=== PATIENT | female | born 1960 | race Two or more races ===

== ENCOUNTER → 2016-07-18 | Outpatient (CLI) | payer OTHER, MEDICARE, MEDICAID | LOC: WI 08:35 | PROVIDERS: ATTEND Family Medicine | DX: Z12.31 Encounter for screening mammogram for malignant neoplasm of breast (principal) | CPT/HCPCS: 77067; G0202 ==

== ENCOUNTER 2016-09-21 13:01 | Emergency (ER) | payer OTHER, MEDICARE, MEDICAID ==
[2016-09-21 13:07] VITALS: BP 133/86
--- NOTE | 2016-09-21 15:36 | ER Document Report ---
HPI - HPI Patient complains to provider of: right ankle pain Pain Level: 4 Context: 56 yo female with hx/o gout c/o pain to medial right ankle x 3 days. typical location and quality of gout pain pt reports last attack was about 1 yr ago. had good results with prednisone. does not tolerate NSAIDS and colcrys -> GI upset Associated Symptoms: None Exacerbated by: Movement, Walking Relieved by: Denies Similar symptoms previously: Yes Recently seen / treated by doctor: No - ROS Systems Reviewed and Negative: Yes All other systems reviewed and negative - REPRODUCTIVE LMP: menopause Reproductive: DENIES: : - DERM Skin Color: Normal Past Medical History - General Information source: Patient - Social History Smoking Status: Never Smoker Frequency of alcohol use: None Drug Abuse: None Occupation: retail Lives with: Family Family History: None Patient has suicidal ideation: No Patient has homicidal ideation: No - Past Medical History Cardiac Medical History: Reports: Hx Hypercholesterolemia, Hx Hypertension Renal/ Medical History: Denies: Hx Peritoneal Dialysis Musculoskeltal Medical History: Reports Hx Arthritis, Reports Hx Gout Past Surgical History: Reports: Hx Orthopedic Surgery - finger - Immunizations Immunizations up to date: Yes Hx Diphtheria, Pertussis, Tetanus Vaccination: Yes Vertical Provider Document - CONSTITUTIONAL Agree With Documented VS: Yes Exam Limitations: No Limitations General Appearance: WD/WN, No Apparent Distress - INFECTION CONTROL TRAVEL OUTSIDE OF THE [place] IN LAST 30 DAYS: No - HEENT HEENT: Atraumatic, PERRLA - NECK Neck: Normal Inspection, Supple - RESPIRATORY Respiratory: Breath Sounds Normal, No Respiratory Distress O2 Sat by Pulse Oximetry: 95 - CARDIOVASCULAR Cardiovascular: Regular Rate, Regular Rhythm - MUSCULOSKELETAL/EXTREMETIES Musculoskeletal/Extremeties: Tender - focal right medial malleolus tenderness. mild edema, erythema and warmth. distal SMC itnact - NEURO Level of Consciousness: Awake, Alert, Appropriate Motor/Sensory: No Motor Deficit - DERM Integumentary: Warm, Dry, No Rash Course - Vital Signs Vital signs: Temp Pulse Resp BP Pulse Ox 98.5 F 76 17 133/86 H 95 09/21/16 13:05 09/21/16 13:05 09/21/16 13:05 09/21/16 13:05 09/21/16 13:05 Discharge - Discharge Condition: Stable Disposition: HOME, SELF-CARE Instructions: Gout ([facility]), Gout Diet ([facility]), Steroid Medication, Oral Narcotic Medication ([facility]) Prescriptions: Oxycodone HCl/Acetaminophen [Percocet 5-325 mg Tablet] 1 tab PO Q4H PRN #15 tablet PRN Reason: Prednisone [Deltasone 10 mg Tablet] 10 mg PO ASDIR PRN #21 tablet PRN Reason: Forms: Return to Work
== END 2016-09-21 16:04 | disposition home or self-care (01) ==
LOC: ER 13:01
DX: M10.9 Gout, unspecified (principal); M25.571 Pain in right ankle and joints of right foot; E78.00 Pure hypercholesterolemia, unspecified; I10 Essential (primary) hypertension
CPT/HCPCS: 99283

== ENCOUNTER → 2017-10-13 | Outpatient (CLI) | payer MEDICARE, MEDICAID ==
--- NOTE | 2017-10-13 15:07 | WOMENS IMAGING REPORT ---
EXAM DESCRIPTION: 3D SCREENING MAMMO BILAT COMPLETED DATE/TIME: 10/13/2017 2:00 pm REASON FOR STUDY: BILATERAL SCREENING MAMMO 3D /Z12.31 Z12.31 ENCNTR SCREEN MAMMOGRAM FOR MALIGNANT NEOPLASM OF GIN COMPARISON: 2011 to 2016 TECHNIQUE: Standard craniocaudal and mediolateral oblique views of each breast recorded using digita l acquisition and breast tomosynthesis. LIMITATIONS: None. FINDINGS: No masses, calcifications or architectural distortion. No areas of suspicion. Read with the assistance of CAD. .[facility] - R2 Cenova Version 1.3 .[facility] - R2 Cenova Version 1.3 .[facility] - R2 Cenova Version 2.4 .[facility] [place] - R2 Cenova Version 2.4 .[facility] - R2 Beef Grinder Version 9.2 IMPRESSION: NORMAL MAMMOGRAM. BIRADS 1. BREAST DENSITY: b. There are scattered areas of fibroglandular density. BIRAD: 1 NEGATIVE RECOMMENDATION: ROUTINE SCREENING COMMENT: The patient has been notified of the results by letter per SA requirements. Additional no tification policies are in place for contacting patient with suspicious or incomplete findings. Quality ID #[id number]: The [employer] recommends an annual screening mammogram for women aged 40 years or over. This facility utilizes a reminder system to ensure that all patients receive reminder letters, and/or direct phone calls for appointments. This includes reminders for routine scr eening mammograms, diagnostic mammograms, or other Breast Imaging Interventions when appropriate. Th is patient will be placed in the appropriate reminder system. The [employer] (ACR) has developed recommendations for screening MRI of the breast s in certain patient populations, to be used in conjunction with mammography. Breast MRI surveillanc e may be appropriate for women with more than 20% lifetime risk of developing breast cancer as deter mined by genetic testing, significant family history of the disease, or history of mantle radiation f or Hodgkins Disease. ACR Practice Guidelines 2008. DBT Technology DBT is a type of tomographic mammography. With conventional mammography, overlapping breast tissue ma y make lesions difficult to detect, even with good compression. DBT uses an x-ray tube that rotates a round the breast, taking images at different angles. These images are then combined to create thin sl ices of the breast that the radiologist can view as a 3D reconstruction. The [employer] unit can perform full-field digital mammograms (2D imaging); or DBT (3D imaging); or both, in a combination mode that quickly performs both the mammogram and the tomosynthesis scan while the breast is still compressed. PQRS 6045F: Fluoroscopic imaging is not utilized for breast tomosynthesis. TECHNICAL DOCUMENTATION: FINDING NUMBER: (1) ASSESSMENT: (1) JOB ID: [id number] [employer]- All Rights Reserved Reading location - IP/workstation name: [facility]
== END ==
LOC: WI 13:14
PROVIDERS: ATTEND Family Medicine
DX: Z12.31 Encounter for screening mammogram for malignant neoplasm of breast (principal)
CPT/HCPCS: 77063; 77067

== ENCOUNTER 2018-08-18 19:16 | Emergency (ER) | payer MEDICARE, MEDICAID ==
[2018-08-18] MEDS ORDERED: PREDNISONE 20 MG TABLET PO ONE (20:51)
[2018-08-18] MEDS ORDERED: HYDROCODONE/ACETAMINOPHEN 5-325 MG (6 TAB/ER DISP) PO PRN (20:51)
--- NOTE | 2018-08-18 21:00 | ER Document Report ---
HPI - HPI Patient complains to provider of: gout flare Time Seen by Provider: 08/18/18 20:38 Pain Level: 4 Context: Very pleasant 58-year-old female with history of gout presents with a typical gout attack in her left foot and ankle consistent with previous attacks. She states that she has had a couple of minor attacks over the last couple years that is been easily treated with Advil. She states the last major attack like that she had was approximately 2 to 3 years ago and did require a steroid treatment. She denies fevers or chills, is able to move her left lower extremity. Denies any proximal joint pain to the knees or hips. No other complaints. - REPRODUCTIVE Reproductive: DENIES: : Past Medical History - Social History Smoking Status: Never Smoker Family History: None - Past Medical History Cardiac Medical History: Reports: Hx Hypercholesterolemia, Hx Hypertension Renal/ Medical History: Denies: Hx Peritoneal Dialysis Musculoskeletal Medical History: Reports Hx Arthritis, Reports Hx Gout Past Surgical History: Reports: Hx Orthopedic Surgery - finger - Immunizations Immunizations up to date: Yes Hx Diphtheria, Pertussis, Tetanus Vaccination: Yes Vertical Provider Document - CONSTITUTIONAL Notes: PHYSICAL EXAMINATION: Reviewed vital signs and charting by RN GENERAL: Alert, interacts well. No acute distress. HEAD: Normocephalic, atraumatic. EYES: Pupils equal, round. Extraocular movements intact. ENT: Oral mucosa moist, tongue midline. NECK: Full range of motion. Supple. Trachea midline. EXTREMITIES: Moves all 4 extremities spontaneously. Edema and warmth to her left ankle and bilateral malleoli, mild erythema, acutely tender to palpation. PSYCH: Normal affect, normal mood. SKIN: Warm, dry, normal turgor. No rashes or lesions noted. - INFECTION CONTROL TRAVEL OUTSIDE OF THE [place] IN LAST 30 DAYS: No Course - Re-evaluation Re-evalutation: 08/18/18 20:56 Patient's presentation consistent with previous gout flareups. Patient states she has not had an attack like this in a couple years but it is similar to the previous. She states that she was given a round of steroids in the past with a short course of pain medication which helped. Her ankle is warm to the touch and swollen. I will give her prednisone 40 mg here in the emergency department and give her a prescription for prednisone with a short course of pain medication. I have instructed her to take Motrin and Tylenol - Vital Signs Vital signs: Temp Pulse Resp BP Pulse Ox 98.8 F 85 18 133/67 H 98 08/18/18 19:27 08/18/18 19:27 08/18/18 19:27 08/18/18 19:27 08/18/18 19:27 Discharge - Discharge Clinical Impression: Gout attack Qualifiers: Gout site: ankle Gout etiology: unspecified cause Laterality: left Qualified Code(s): M10.9 - Gout, unspecified Condition: Good Disposition: HOME, SELF-CARE Additional Instructions: You were seen today for gout. Please take the steroids as directed on the prescription take ibuprofen 600 mg with Tylenol 1000 mg every 6 hours as needed for pain. I have also given you a short course of pain medication you can take as needed. Take 1 to 2 tablets every 4-6 hours as needed for acute pain. Follow-up with your primary care doctor in the next several days. Return if you have fever greater than 100.4F, worsening pain, become unable to move the knee, or have any other symptoms that are worrisome to you. Prescriptions: Prednisone [Deltasone 10 mg Tablet] 40 mg PO ASDIR #15 tablet Referrals: PEG DAO MD [Primary Care Provider] - Follow up as needed
[2018-08-18 21:33] VITALS: BP 123/66
== END 2018-08-18 21:37 | disposition home or self-care (01) ==
LOC: ER 19:16
DX: M10.9 Gout, unspecified (principal); E78.00 Pure hypercholesterolemia, unspecified; I10 Essential (primary) hypertension
CPT/HCPCS: 99283; A9270 ×2; J7512

== ENCOUNTER 2019-05-19 09:02 | Emergency (ER) | payer MEDICARE, MEDICAID ==
[2019-05-19] MEDS ORDERED: KETOROLAC TROMETHAMINE INJ/PF 30 MG/1 ML SDV IM ONE (09:30)
[2019-05-19] MEDS ORDERED: CYCLOBENZAPRINE HCL 10 MG TABLET PO ONE (09:31)
--- NOTE | 2019-05-19 09:31 | ER Document Report ---
HPI - HPI Time Seen by Provider: 05/19/19 09:22 Pain Level: 4 Context: Patient is a 58-year-old female who presents emergency department with a chief complaint of chronic back pain. Patient reports she has had left lower back pain that started Monday. Denies injury or fall. 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 Patient reports she has had this pain before and was told it was sciatica. Patient repo rts she has been taking 400 mg ibuprofen 500 mg of Tylenol without much relief. Patient reports the pain is worse with certain movements. Patient denies loss of bowel or bladder. Patient reports the left lower back pain radiates into her left thigh and does create numbness and tingling at times. Patient denies saddle anesthesia. - CONSTITUTIONAL Constitutional: DENIES: Fever, Chills - REPRODUCTIVE Reproductive: DENIES: : Past Medical History - General Information source: Patient - Social History Smoking Status: Never Smoker Chew tobacco use (# tins/day): No Frequency of alcohol use: Occasional Drug Abuse: None Lives with: Family Family History: None Patient has suicidal ideation: No Patient has homicidal ideation: No - Past Medical History Cardiac Medical History: Reports: Hx Hypercholesterolemia, Hx Hypertension Pulmonary Medical History: Reports: None EENT Medical History: Reports: None Neurological Medical History: Reports: None Endocrine Medical History: Reports: None Renal/ Medical History: Reports: None. Denies: Hx Peritoneal Dialysis Malignancy Medical History: Reports: None GI Medical History: Reports: None Musculoskeletal Medical History: Reports Hx Arthritis, Reports Hx Gout Skin Medical History: Reports None Psychiatric Medical History: Reports: None Traumatic Medical History: Reports: None Infectious Medical History: Reports: None Past Surgical History: Reports: Hx Orthopedic Surgery - finger - Immunizations Immunizations up to date: Yes Hx Diphtheria, Pertussis, Tetanus Vaccination: Yes Vertical Provider Document - CONSTITUTIONAL Agree With Documented VS: Yes Exam Limitations: No Limitations General Appearance: No Apparent Distress - INFECTION CONTROL TRAVEL OUTSIDE OF THE [place] IN LAST 30 DAYS: No - HEENT HEENT: Atraumatic, Normal ENT Exam, Normocephalic, PERRLA - NECK Neck: Normal Inspection - RESPIRATORY Respiratory: Breath Sounds Normal, No Respiratory Distress - CARDIOVASCULAR Cardiovascular: Regular Rate, Regular Rhythm - GI/ABDOMEN Gastrointestinal: Abdomen Soft, Abdomen Non-Tender, Normal Bowel Sounds - BACK Back: Normal Inspection Notes: Patient does have significant tenderness to the left lower lumbar muscles of the back with palpation. There is no cervical, thoracic or lumbar midline tenderness with palpation. No edema. - MUSCULOSKELETAL/EXTREMETIES Musculoskeletal/Extremeties: FROM - NEURO Level of Consciousness: Awake, Alert, Appropriate - DERM Integumentary: Warm, Dry, No Rash Course - Re-evaluation Re-evalutation: 05/19/19 09:57 We will treat the patient with an anti-inflammatory injection of Toradol. Also give the patient muscle relaxers as she has significant tenderness over the left lower lumbar muscles with palpation of these muscles to, feel tense. 05/19/19 10:16 Patient reports mild relief after receiving muscle relaxer and Toradol injection. Patient does have a ride home. We will treat the patient for sciatica. To follow-up with [facility] later this week if not feeling better. Patient ambulated out of ER without distress. - Vital Signs Vital signs: Temp Pulse Resp BP Pulse Ox 98.0 F 99 16 139/71 H 98 05/19/19 09:06 05/19/19 09:06 05/19/19 09:06 05/19/19 09:06 05/19/19 09:06 Discharge - Discharge Clinical Impression: Sciatica of left side, Pain of back and left lower extremity Condition: Stable Disposition: HOME, SELF-CARE Instructions: Ice Packs ([facility]), Warm Packs ([facility]) Additional Instructions: *Today was seen the emergency department for left lower back pain and left leg pain. Your symptoms are consistent with sciatica. Sciatica typically radiates down the leg and can cause numbness. Please continue to use anti- inflammatories. I am giving you and a 800 mg ibuprofen as well as muscle relaxers. Please do not drive or operate heavy machinery while on the muscle relaxers as this can cause significant drowsiness. Please rest over the next few days. *If you are not feeling better within the next few days please follow-up with your primary care physician at [facility]. Sciatica Your symptoms suggest "sciatica." The pain of sciatica typically radiates down the leg. Numbness in the foot or calf may also occur. Sciatica is caused by irritation of the sciatic nerve or its branches. The irritation can be due to a herniated disk in the spine, swelling and inflammation in the muscles surrounding the sciatic nerve, or direct injury of the nerve itself. Most cases of sciatica will resolve with medical treatment. Bed rest is usually recommended initially. Surgery is only necessary when the condition will not improve with rest and antiinflammatory medication. Muscle relaxers are often given if muscle soreness is present. A CAT scan of the back may be performed if a herniated disk is suspected. Re-examination is necessary if you develop increasing numbness, localized weakness in the foot or ankle, or if the pain does not respond to rest. Low Back Pain Three out of every four people will have an episode of disabling back pain during their lifetime. Most commonly the pain is due to straining of the muscles and ligaments in the low back. Usual treatment includes: (1) Rest on a firm surface. Avoid lying on your stomach. (2) Ice pack the painful area. After a few days, gentle heat may be used intermittently to relax the area, or ice packs can be continued. (3) Medication may be needed -- muscle relaxers and antiinflammatory medicines are commonly used. (4) As the back improves, exercises are prescribed to strengthen the back and abdominal muscles. Your doctor will advise you on the proper care for your back at each stage in your recovery. You may be better in a few days -- or healing may take several weeks. If new symptoms of a "herniated disc" (radiation of pain, numbness, or tingling down the back of the leg or weakness in the leg) occur, you should be re-examined. Further testing may be necessary. Prescriptions: Cyclobenzaprine HCl [Flexeril 10 mg Tablet] 10 mg PO TID PRN #12 tablet PRN Reason: Ibuprofen [Motrin 800 mg Tablet] 800 mg PO Q8H PRN #30 tab PRN Reason: Forms: Return to Work Referrals: PEG DAO MD [Primary Care Provider] - Follow up as needed
[2019-05-19 10:11] VITALS: BP 138/76
== END 2019-05-19 10:14 | disposition home or self-care (01) ==
LOC: ER 09:02
DX: M54.32 Sciatica, left side (principal); M79.605 Pain in left leg; M54.9 Dorsalgia, unspecified; G89.29 Other chronic pain; M54.5 Low back pain; M79.652 Pain in left thigh; R20.0 Anesthesia of skin; Z79.899 Other long term (current) drug therapy; I10 Essential (primary) hypertension
CPT/HCPCS: 99283; 96372; A9270; J1885